=== PATIENT | male | born 1990 | race Two or more races ===

== ENCOUNTER 2017-01-26 21:19 | Emergency (ER) | payer MEDICAID, OTHER ==
[2017-01-26 21:44] VITALS: BP 143/82; PULSE 78; RESP 20; TEMP 98.1; O2SAT 100
--- NOTE | 2017-01-26 22:36 | C.PDOC ---
Time Seen by Provider: 01/26/17 22:36 Chief Complaint (Nursing): Abdominal Pain Past Medical History Vital Signs: Last Vital Signs Temp 98.1 F 01/26/17 21:37 Pulse 78 01/26/17 21:37 Resp 20 01/26/17 21:37 BP 143/82 01/26/17 21:37 Pulse Ox 100 01/26/17 21:37 - Medical History PMH: Mitral Valve Prolapse (uncorrected) Surgical History: Appendectomy - [facility] Procedures INJECT/INFUSE NEC (06/08/14) - Social History Hx Alcohol Use: No Hx Substance Use: No ED Course And Treatment O2 Sat by Pulse Oximetry: 100 Disposition Counseled Patient/Family Regarding: Studies Performed, Diagnosis - Disposition Disposition Time: 22:36
== END 2017-01-26 22:36 | disposition left against medical advice (07) ==
LOC: C.ER 21:19
DX: Z02.89 Encounter for other administrative examinations (principal); R10.9 Unspecified abdominal pain